=== PATIENT | female | born 1960 | race Caucasian/White ===

== ENCOUNTER 2018-12-25 09:27 | Emergency (ER) | payer OTHER ==
[~2018-12-25] VITALS: Ht 162.6 cm; Wt 90.7 kg
[~2018-12-25 09:27] MED LIST: ALBU90OI INH; AMIT10 PO; AMOCLA875 PO; AMOX500 PO; ARIP10 PO; Bactrim Ds Tab1 EACH PO; CEPH500 PO; CITA20 PO; CODGUAEL PO; CYCL10 PO; DOXY100 PO; ERGO50000 PO; ESTMEDA PO; FLUO20 PO; FLUT.05NI; GEMF600 PO; HYDACE5 PO; HYDACE5325 PO; HYDCHL25 PO; LITH300C PO; METF500 PO; METO100ER; METO50ER PO; NAPR550 PO; PROCODE120 PO; ROBITUSSIN COU237 ML PO; ROSU10TA PO; RXHYD5325 PO; SERT50; SPIHYD; TRAM50 PO; Zithromax250 MG PO
[2018-12-25] MEDS ORDERED: NEOPOLHCSU RIGHTEAR (12:09)
== END 2018-12-25 12:14 | disposition home or self-care (01) ==
LOC: ER 09:27
DX: H60.91 Unspecified otitis externa, right ear (principal); E11.9 Type 2 diabetes mellitus without complications; F31.9 Bipolar disorder, unspecified; F17.210 Nicotine dependence, cigarettes, uncomplicated; Z87.01 Personal history of pneumonia (recurrent); Z79.899 Other long term (current) drug therapy

== ENCOUNTER 2019-11-16 08:02 | Emergency (ER) | payer OTHER ==
[~2019-11-16] VITALS: Ht 162.6 cm; Wt 82.5 kg
[~2019-11-16 08:02] MED LIST changes: +NEOPOLHCSU RIGHTEAR
[2019-11-16] MEDS ORDERED: Prednisone20 MG PO (10:41)
[2019-11-16] MEDS ORDERED: Augmentin 875-1 EACH PO (10:41)
[2019-11-16] MEDS ORDERED: ALBU90OI INH (10:41)
== END 2019-11-16 11:34 | disposition home or self-care (01) ==
LOC: ER 08:02
DX: J44.1 Chronic obstructive pulmonary disease with (acute) exacerbation (principal); K04.7 Periapical abscess without sinus; E11.9 Type 2 diabetes mellitus without complications; F31.9 Bipolar disorder, unspecified; F17.200 Nicotine dependence, unspecified, uncomplicated; Z79.899 Other long term (current) drug therapy
CPT/HCPCS: 71046; 94644; 99283-25; J1100

== ENCOUNTER 2019-11-24 09:52 | Emergency (ER) | payer OTHER ==
[~2019-11-24] VITALS: Ht 162.6 cm; Wt 84.8 kg
[~2019-11-24 09:52] MED LIST changes: +Augmentin 875-1 EACH PO; +Prednisone20 MG PO
[2019-11-24] MEDS ORDERED: IBUP800 PO (10:41)
[2019-11-24] MEDS ORDERED: BUDE6HFA INH (10:41)
[2019-11-24] MEDS ORDERED: Prednisone20 MG PO (10:41)
[2019-11-24] MEDS ORDERED: Vibramycin100 MG PO (10:41)
[2019-11-24] MEDS ORDERED: Flonase 0.05% N16 GM (10:41)
== END 2019-11-24 11:15 | disposition home or self-care (01) ==
LOC: ER 09:52
DX: J44.1 Chronic obstructive pulmonary disease with (acute) exacerbation (principal); J02.9 Acute pharyngitis, unspecified; J30.9 Allergic rhinitis, unspecified; E11.9 Type 2 diabetes mellitus without complications; F31.9 Bipolar disorder, unspecified; F17.200 Nicotine dependence, unspecified, uncomplicated; Z79.899 Other long term (current) drug therapy; Z79.51 Long term (current) use of inhaled steroids; Z79.52 Long term (current) use of systemic steroids
CPT/HCPCS: 94640; 99283-25; J7512

== ENCOUNTER 2020-08-12 18:07 | Emergency (ER) | payer OTHER ==
[~2020-08-12] VITALS: Ht 162.6 cm; Wt 81.7 kg
[~2020-08-12 18:07] MED LIST changes: +BUDE6HFA INH; +Flonase 0.05% N16 GM; +IBUP800 PO; +Vibramycin100 MG PO
[2020-08-12 18:41] LABS: BASOPHILS ABSOLUTE AUTO 0.05 K/mm3 (0.00-0.23); BASOPHILS PERCENT AUTO 1 % (0-2); EOSINOPHILS ABSOLUTE AUTO 0.21 K/mm3 (0.00-0.68); EOSINOPHILS PERCENT AUTO 3 % (0-6); Hematocrit 38.2 % (33.0-51.0); Hemoglobin 12.4 g/dL (11.5-16.0); IMMATURE GRAN ABSOLUTE AUTO 0.02 K/mm3 (0.00-0.10); IMMATURE GRAN PERCENT AUTO 0 % (0-1); LYMPHOCYTES PERCENT AUTO 22 % (21-46); MONOCYTES ABSOLUTE AUTO 0.93 K/mm3 (0.16-1.47); MONOCYTES PERCENT AUTO 11 % (4-13); Mean Corpuscular HGB 28.7 pg (26.0-34.0); Mean Corpuscular HGB Conc 32.5 g/dL (31.5-36.5); Mean Corpuscular Volume 88 fL (80-100); Mean Platelet Volume 9.5 fL (9.1-12.4); NEUTROPHILS ABSOLUTE AUTO 5.26 K/mm3 (1.96-9.15); NEUTROPHILS PERCENT AUTO 64 % (41-73); Platelet Count 349 K/mm3 (150-400); RDW Coefficient Variation 11.9 % (11.7-14.2); RDW Standard Deviation 38.5 fL (35.1-46.3); Red Blood Cell Count 4.32 M/mm3 (3.80-5.20); White Blood Cell Count 8.27 K/mm3 (4.00-11.30)
[2020-08-12 19:06] LABS: Alanine Aminotransfer (ALT/SGP 13 U/L (12-78); Albumin, Blood 3.2 g/dL (3.4-5.0); Albumin/Globulin Ratio 0.7 (0.8-1.8); Alk Phos 81 U/L (50-136); Anion Gap 10 mmol/L (6-16); Aspartate Aminotrans (AST/SGOT 9 U/L (12-37); Bilirubin, Total 0.2 mg/dL (0.1-1.0); Blood Urea Nitrogen 19 mg/dL (8-24); CO2, Blood 21 mmol/L (21-32); Calcium, Blood 9.2 mg/dL (8.5-10.1); Chloride, Blood 111 mmol/L (98-108); Creatinine, Blood 0.61 mg/dL (0.40-1.00); Globulin, Blood 4.3 g/dL (2.2-4.0); Glomerular Filtration Rate >60 (60-); Glucose, Blood 118 mg/dL (70-99); Potassium, Blood 3.7 mmol/L (3.5-5.5); Sodium, Blood 142 mmol/L (136-145); Total Protein, Blood 7.5 g/dL (6.4-8.2)
[2020-08-12] MEDS ORDERED: DOXY100 PO (21:10)
[2020-08-12] MEDS ORDERED: FURO20 PO (21:10)
== END 2020-08-12 21:26 | disposition home or self-care (01) ==
LOC: ER 18:07
PROVIDERS: Emergency Medicine
DX: L03.115 Cellulitis of right lower limb (principal); L03.114 Cellulitis of left upper limb; R60.0 Localized edema
CPT/HCPCS: 80053; 83880; 85025; 99283; A9270-GY

== ENCOUNTER 2022-04-10 11:01 | Emergency (ER) | payer OTHER ==
[~2022-04-10] VITALS: Ht 162.6 cm; Wt 81.7 kg
[~2022-04-10 11:01] MED LIST changes: +FURO20 PO
[2022-04-10 12:17] LABS: BASOPHILS ABSOLUTE AUTO 0.03 K/mm3 (0.00-0.23); BASOPHILS PERCENT AUTO 0 % (0-2); EOSINOPHILS ABSOLUTE AUTO 0.18 K/mm3 (0.00-0.68); EOSINOPHILS PERCENT AUTO 3 % (0-6); Hematocrit 41.3 % (33.0-51.0); Hemoglobin 13.5 g/dL (11.5-16.0); IMMATURE GRAN ABSOLUTE AUTO 0.01 K/mm3 (0.00-0.10); IMMATURE GRAN PERCENT AUTO 0 % (0-1); LYMPHOCYTES ABSOLUTE AUTO 1.63 K/mm3 (0.84-5.20); LYMPHOCYTES PERCENT AUTO 23 % (21-46); MONOCYTES ABSOLUTE AUTO 0.57 K/mm3 (0.16-1.47); MONOCYTES PERCENT AUTO 8 % (4-13); Mean Corpuscular HGB 29.2 pg (26.0-34.0); Mean Corpuscular HGB Conc 32.7 g/dL (31.5-36.5); Mean Corpuscular Volume 89 fL (80-100); Mean Platelet Volume 9.7 fL (9.1-12.4); NEUTROPHILS ABSOLUTE AUTO 4.68 K/mm3 (1.96-9.15); NEUTROPHILS PERCENT AUTO 66 % (41-73); Platelet Count 315 K/mm3 (150-400); RDW Coefficient Variation 12.3 % (11.7-14.2); RDW Standard Deviation 40.6 fL (35.1-46.3); Red Blood Cell Count 4.62 M/mm3 (3.80-5.20)
[2022-04-10 12:41] LABS: Albumin, Blood 3.3 g/dL (3.4-5.0); Albumin/Globulin Ratio 0.9 (0.8-1.8); Bilirubin, Total 0.3 mg/dL (0.1-1.0); Bun/Creatinine Ratio 29.2 (12.0-20.0); Creatinine, Blood 0.65 mg/dL (0.40-1.00); Globulin, Blood 3.5 g/dL (2.2-4.0); Potassium, Blood 3.5 mmol/L (3.5-5.5); Total Protein, Blood 6.8 g/dL (6.4-8.2)
[2022-04-10] MEDS ORDERED: AMOCLA875 PO ×2 (12:51→13:01)
== END 2022-04-10 13:11 | disposition home or self-care (01) ==
LOC: ER 11:01
PROVIDERS: Physician Assistant
DX: S41.152A Open bite of left upper arm, initial encounter (principal); S41.151A Open bite of right upper arm, initial encounter; L08.9 Local infection of the skin and subcutaneous tissue, unspecified; E11.9 Type 2 diabetes mellitus without complications; F17.200 Nicotine dependence, unspecified, uncomplicated; W54.0XXA Bitten by dog, initial encounter; Y92.830 Public park as the place of occurrence of the external cause; Z79.899 Other long term (current) drug therapy
CPT/HCPCS: 36415; 80053; 83605; 85025; 90714; A9270